=== PATIENT | male | born 1955 | race Caucasian/White ===

== ENCOUNTER 2018-02-22 09:19 | Emergency (ER) | payer BC ==
[~2018-02-22] VITALS: Ht 188 cm; Wt 106.6 kg
--- NOTE | 2018-02-22 09:19 | NUR ---
Patient went immediately to room 4A, AOx4, LEXI, respiration:easy, still feels midly weak and dizzy, skin warm and dry, denies nausea or chest pains
--- NOTE | 2018-02-22 10:06 | NUR ---
Patient's family wants the patient transferred to [facility] notified.
[2018-02-22 10:20] LABS: BASOPHILS % (AUTO) 0.2 % (0.0-2.0); BILIRUBIN,DIRECT 0.2 mg/dL (0.0-0.2); BILIRUBIN,TOTAL 0.8 mg/dL (0.2-1.0); EOSINOPHILS % (AUTO) 0.4 % (0.0-7.0); HEMATOCRIT 41.9 % (36.7-47.1); HEMOGLOBIN 14.2 g/dL (12.5-16.3); LYMPHOCYTES # (AUTO) 0.6 K/uL (20.0-40.0); LYMPHOCYTES % (AUTO) 7.9 % (20.5-51.5); MEAN CORPUSCULAR HGB CONC 34 g/dL (32.5-36.3); MEAN CORPUSCULAR VOLUME 85.4 fL (73.0-96.2); MONOCYTES # (AUTO) 0.3 K/uL (2.0-10.0); MONOCYTES % (AUTO) 3.5 % (0.0-11.0); NEUTROPHILS # (AUTO) 6.7 K/uL (1.8-8.9); PLATELET COUNT (AUTO) 134 K/uL (152-348); POTASSIUM 4.1 mmol/L (3.5-5.1); TOTAL PROTEIN, SERUM 7.3 g/dL (6.4-8.2); WHITE BLOOD COUNT (AUTO) 7.6 K/uL (3.6-10.2)
[2018-02-22] MEDS ORDERED: GENTAMICIN SULFATE INJ 80 MG in IV DEXTROSE 5% 100 ML IV ONE (10:30)
[2018-02-22] MEDS ORDERED: VANCOMYCIN IV 1,000 MG in IV DEXTROSE 5% 250 ML IV ONE (10:30)
[2018-02-22] MEDS ORDERED: IV NORMAL SALINE 1000 ML BAG IV ONE (10:30)
--- NOTE | 2018-02-22 10:35 | NUR ---
Patient wants to go home, MD notified.
[2018-02-22] MEDS ORDERED: VANCOMYCIN IV 200 ML ONE (10:36)
[2018-02-22 11:27] LABS: *BILIRUBIN,URIN NEGATIVE (NEGATIVE); *BLOOD, URINE NEGATIVE (NEGATIVE); *CLARITY,URINE CLEAR (CLEAR); *COLOR,URINE YELLOW (YELLOW); *KETONES,URINE NEGATIVE (NEGATIVE); *PROTEIN,URINE NEGATIVE (NEGATIVE); *UROBILINOGEN,URINE 0.2 E.U./dl (NORMAL); LEUKOCYTE ESTERASE ,URINE NEGATIVE (NEGATIVE); NITRITE, URINE NEGATIVE (NEGATIVE); UGLUCOSE NEGATIVE (NEGATIVE)
[2018-02-22 11:33] LABS: BACTERIA,URINE NONE SEEN /HPF (NONE SEEN); MUCUS,URINE FEW /LPF (0-FEW); RBC,URINE 0-3 /HPF (0-3); SQUAMOUS EPITHELIAL CELL,UR FEW /HPF (NONE SEEN); WBC,URINE 0-3 /HPF (0-3)
--- NOTE | 2018-02-22 11:33 | NUR ---
Patient ambulated to bathroom with slow steady gait, NAD, denies dizziness or weakness@this time
--- NOTE | 2018-02-22 11:35 | NUR ---
Patient is willing to stay until all IV fluids and IV antibiotic meds are infused then a repeat lactic acid is drawn & matty, notified of patient's preference.
--- NOTE | 2018-02-22 12:16 | NUR ---
Patient is resting comfortably on gurney, calm & breathing easily, no acute change in condition seen
--- NOTE | 2018-02-22 12:23 | NUR ---
Diabetic lunch tray is now at bedside.
--- NOTE | 2018-02-22 14:57 | NUR ---
IV removed. Catheter intact and site benign. Pressure and 4x4 gauze applied to site. No bleeding noted. Patient discharged to home in stable conditon. Written and verbal after care instructions given to patient and spouse with copies of all diagnostic tests results. Patient and spouse verbalized understanding of instructions.
== END 2018-02-22 15:03 | disposition home or self-care (01) ==
LOC: ER 09:22
DX: R55 Syncope and collapse (principal); E11.9 Type 2 diabetes mellitus without complications; I48.91 Unspecified atrial fibrillation; Z86.73 Personal history of transient ischemic attack (TIA), and cerebral infarction without residual deficits
CPT/HCPCS: 36415; 70030-TC; 70450; 71045; 83605; 85025; 85730; 87040; 87086; 93005; A4663; J1580; J3370; J7030; J7040; J7060

== ENCOUNTER → 2018-03-12 | Outpatient (CLI) | payer BC | END | disposition home or self-care (01) | LOC: RAD 11:56 | DX: J18.9 Pneumonia, unspecified organism (principal) | CPT/HCPCS: 71046 ==